=== PATIENT | female | born 1975 | race Hispanic/Latino ===

== ENCOUNTER 2018-06-02 09:26 | Outpatient (CLI) | payer OTHER ==
--- NOTE | 2018-06-02 11:33 | ULT ---
RIGHT UPPER QUADRANT ULTRASOUND: DATE: 06/02/18. HISTORY: Elevated liver function tests. COMPARISON: 12/19/12. FINDINGS: Visualized portions of the pancreas, visualized portions of the IVC, visualized portions of the liver , and right kidney demonstrate a normal sonographic appearance. The right kidney measures 11.5 cm in length. A gallbladder is not visualized consistent with the patient's reported history of a prior cholecystec enriqueta which has occurred in the interim from the prior exam. The common duct measures 0.[address], which is within normal limits for post cholecystectomy changes. IMPRESSION: 1. Cholecystectomy. The common duct is within normal limits for post cholecystectomy changes. 2. The liver demonstrates a normal sonographic appearance. No focal hepatic lesion is seen. POS: NELY
== END 2018-06-02 09:27 | disposition home or self-care (01) ==
LOC: ULT 09:26
PROVIDERS: ATTEND Family Medicine
DX: R35.0 Frequency of micturition (principal); Z90.49 Acquired absence of other specified parts of digestive tract
CPT/HCPCS: 76705